=== PATIENT | female | born 1985 | race African-American/Black ===

== ENCOUNTER 2019-09-29 12:23 | Emergency (ER) | payer OTHER ==
[~2019-09-29] VITALS: Ht 167.6 cm; Wt 91.0 kg
[2019-09-29 15:23] VITALS: BP 150/79
== END 2019-09-29 15:27 | disposition home or self-care (01) ==
LOC: ER 12:23
DX: J32.9 Chronic sinusitis, unspecified (principal); Z98.890 Other specified postprocedural states
CPT/HCPCS: 99281; 99283